=== PATIENT | female | born 1955 | race Caucasian/White ===

== ENCOUNTER 2016-06-27 07:04 | Day surgery (SDC) | payer OTHER ==
[~2016-06-27] VITALS: Ht 157.5 cm; Wt 98.5 kg
[2016-06-27 07:58] VITALS: Ht 157.5 cm; Wt 98.5 kg
[2016-06-27] MEDS ORDERED: LISI20TA11 PO (08:03)
[2016-06-27] MEDS ORDERED: PROPOFOL 40 ML ONE (08:22)
[2016-06-27] MEDS ORDERED: LIDOCAINE 2% (SDV) 5 ML INJ ONE (08:22)
[2016-06-27 08:23] VITALS: PULSE 65; RESP 10
[2016-06-27 09:35] VITALS: BP 116/63; PULSE 63; RESP 16
--- NOTE | 2016-06-27 10:54 | GILP ---
DATE OF PROCEDURE: 06/27/2016 NAME OF PROCEDURE: Colonoscopy and biopsy. SURGEON: Georgette Aguilar MD PREOPERATIVE DIAGNOSIS: Screening colonoscopy. POSTOPERATIVE DIAGNOSES: 1. Colonoscopy all the way to the cecum. 2. Transverse colon polyp was removed using the biopsy forceps. 3. Diverticulosis of the colon. 4. Internal hemorrhoids. INDICATION FOR THE PROCEDURE: Ms. Genevieve Barillas is a 61-year-old female patient who was scheduled fo r screening colonoscopy. The procedure and possible complications were well explained to the patient, she understood and cons ented to the procedure. DESCRIPTION OF PROCEDURE: Under the influence of anesthesia, the colonoscope was carefully introduc ed in the rectum and under direct vision, it was advanced all the way to the cecum. FINDINGS: The patient had a transverse colon polyp and it was removed using the biopsy forceps. Sh e had diverticulosis of the colon and internal hemorrhoids. She tolerated the procedure very well and there was no complication from the procedure. At the end of the procedure, she was awake with stable vital signs and she was discharged home to the care of h er family. IMPRESSION: Please see postoperative diagnoses. PLAN: 1. Await histopathology report. 2. Next screening colonoscopy 5 to 10 years depending upon the histopathology. Dictated By: GEORGETTE GOLDBERG/TAMRA Conf#: [id number] DID#: [id number] CC: GEORGETTE AGUILAR MD;*EndCC*
== END 2016-06-27 09:51 | disposition home or self-care (01) ==
LOC: GIL 07:04
PROVIDERS: ATTEND Internal Medicine Gastroenterology
DX: Z12.11 Encounter for screening for malignant neoplasm of colon (principal); D12.3 Benign neoplasm of transverse colon; K57.90 Diverticulosis of intestine, part unspecified, without perforation or abscess without bleeding; K64.8 Other hemorrhoids; I10 Essential (primary) hypertension; E66.01 Morbid (severe) obesity due to excess calories; Z68.39 Body mass index [BMI] 39.0-39.9, adult
CPT/HCPCS: 45380; 88305; Z7610